=== PATIENT | male | born 1960 | race Caucasian/White ===

== ENCOUNTER 2020-04-07 10:50 | Observation (INO) | payer BC, OTHER ==
[~2020-04-07] VITALS: Ht 182.9 cm; Wt 94.3 kg
[2020-04-07 11:16] LABS: BASOPHILS % (AUTO) 0.8 % (0.0-5.0); EOSINOPHILS % (AUTO) 0.1 % (0.0-8.0); HEMATOCRIT 47.4 % (42-54); LYMPHOCYTES % (AUTO) 29.3 % (21.0-51.0); MEAN CORPUSCULAR HEMOGLOBIN 32.1 pg (27.0-33.0); MEAN CORPUSCULAR VOLUME 91.7 fL (79-99); MONOCYTES % (AUTO) 4.5 % (3.0-13.0); NEUTROPHILS % (AUTO) 65.2 % (40.0-77.0); PLATELET COUNT (AUTO) 355 K/uL (130-400); RED BLOOD CELL COUNT(AUTO) 5.17 MIL/uL (4.50-6.20); RED CELL DISTRIBUTION WIDTH 12.6 % (11.0-15.5); WHITE BLOOD COUNT (AUTO) 8.4 K/uL (4.8-10.8)
[2020-04-07 11:30] LABS: TOTAL PROTEIN, SERUM 7.9 g/dL (6.0-8.3)
[2020-04-07 11:54] LABS: INR 1.03 (0.85-1.15)
[2020-04-07 11:55] LABS: PARTIAL THROMBOPLASTIN TIME 27.9 SEC (26.3-35.5)
[2020-04-07] MEDS ORDERED: LABETALOL 20 MG/4 ML DISP.SYRIN IV ONE ×2 (12:27→23:04)
[2020-04-07] MEDS ORDERED: KETOROLAC TROMETHAMINE 30MG/ML ONE (12:31)
[2020-04-07] MEDS ORDERED: TETRACAINE HCL 0.5% 4 ML OPHTH SOLN ONE (12:31)
[2020-04-07] MEDS ORDERED: FLUORESCEIN SODIUM 1 STRIP STRIP ONE (12:31)
[2020-04-07] MEDS ORDERED: SODIUM CHLORIDE 0.9% 1000ML 1,000 ML IV ONE (12:32)
[2020-04-07 12:38] LABS: AMPHET/METH SCREEN,URINE NEGATIVE (NEGATIVE); BARBITURATE SCREEN, URINE NEGATIVE (NEGATIVE); BENZODIAZEPINES SCREEN,URINE NEGATIVE (NEGATIVE); CANNABINOID SCREEN,URINE NEGATIVE (NEGATIVE); COCAINE SCREEN,URINE NEGATIVE (NEGATIVE); OPIATE SCREEN,URINE NEGATIVE (NEGATIVE); PHENCYCLIDINE SCREEN,URINE NEGATIVE (NEGATIVE)
[2020-04-07 13:23] LABS: APPEARANCE,URINE Cloudy (CLEAR); BILIRUBIN,URINE Negative (NEGATIVE); COLOR,URINE Yellow (YELLOW); GLUCOSE, URINE (UA) Negative (NEGATIVE); KETONES,URINE 15 mg/dL (NEGATIVE); LEUKOCYTE ESTERASE ,URINE Trace (NEGATIVE); NITRATE,URINE Negative (NEGATIVE); OCCULT BLOOD,URINE Negative (NEGATIVE); PROTEIN,URINE Trace mg/dL (NEGATIVE)
[2020-04-07 14:10] LABS: AMORPHOUS SEDIMENT,UR Few /LPF (None Seen); BACTERIA,URINE Few /HPF (None Seen); RBC,URINE 0-1 /HPF (0-1); SQUAMOUS EPITHELIAL CELL,UR Rare /HPF (0-2); WBC,URINE 0-1 /HPF (0-1)
[2020-04-07] MEDS ORDERED: HYDRALAZINE HCL 25 MG TABLET ONE (14:10)
[2020-04-07] MEDS ORDERED: IOHEXOL 350 MG/ML 100ML INFUS..BTL IV ONE (16:13)
[2020-04-07] MEDS ORDERED: MORPHINE SULFATE 4 MG/1ML SYG ONE (16:51)
[2020-04-07] MEDS ORDERED: ONDANSETRON HCL 4 MG/2 ML VIAL ONE (16:51)
[2020-04-07] MEDS ORDERED: GUAIFENESIN-DM 200/20 MG 10 ML PO PRN (20:00)
[2020-04-07] MEDS ORDERED: BUTALB/ACETAMINOPHEN/CAFFEINE 1 EACH TABLET PO PRN (20:00)
[2020-04-07] MEDS ORDERED: ONDANSETRON HCL 4 MG/2 ML VIAL IV PRN (20:00)
[2020-04-07] MEDS ORDERED: LACTULOSE 20 GM/30 ML UDCUP PO PRN (20:00)
[2020-04-07] MEDS ORDERED: NITROGLYCERIN 0.4 MG SL TAB SL PRN (20:00)
[2020-04-07] MEDS: LACTATED RINGERS 1000ML 1,000 ML IV SCH (20:00)
[2020-04-07] MEDS: LORATADINE 10 MG TABLET PO SCH (20:00)
[2020-04-07] MEDS ORDERED: MAG HYDROX/AL HYDROX/SIMETH ES 30 ML SUSP UDCUP PO PRN (20:00)
[2020-04-07] MEDS ORDERED: CEFTRIAXONE SODIUM 1 GM IV SCH (20:00)
[2020-04-07] MEDS ORDERED: LABETALOL 20 MG/4 ML DISP.SYRIN IV PRN (20:00)
[2020-04-07] MEDS ORDERED: ACETAMINOPHEN 325 MG TAB PO PRN ×2 (20:00)
[2020-04-07] MEDS ORDERED: DIPHENHYDRAMINE HCL 25 MG CAPSULE PO PRN (20:00)
[2020-04-07] MEDS ORDERED: DiphenhydrAMINE HCL 50 MG/ML VIAL IV PRN (20:00)
[2020-04-07 20:50] LABS: CRP QUANTITATIVE 5.8 mg/L (0.00-9.0); THYROID STIMULATING HORMONE 0.85 uIU/mL (0.36-3.74)
[2020-04-07] MEDS: LOSARTAN 50 MG TABLET PO SCH (21:00)
[2020-04-07] MEDS ORDERED: FLUTICASONE PROPIONATE 50MCG/SPRAY 16 GM BOTTLE EN SCH (21:00)
[2020-04-07] MEDS ORDERED: TAMSULOSIN HCL 0.4 MG CAP.ER.24H PO SCH (21:15)
[2020-04-07] MEDS ORDERED: TAMSULOSIN HCL 0.4 MG CAP.ER.24H ONE (23:03)
[2020-04-07] MEDS ORDERED: CEFTRIAXONE SODIUM 1 GM ONE (23:04)
[2020-04-07] MEDS ORDERED: LORATADINE 10 MG TABLET ONE (23:04)
[2020-04-07] MEDS ORDERED: LOSARTAN 50 MG TABLET ONE (23:05)
[2020-04-07 23:30] VITALS: BP 172/112
[2020-04-08 03:51] VITALS: BP 133/99
[2020-04-08 03:57] LABS: BASOPHILS % (AUTO) 0.5 % (0.0-5.0); EOSINOPHILS % (AUTO) 0.6 % (0.0-8.0); HEMATOCRIT 47.1 % (42-54); LYMPHOCYTES % (AUTO) 29.6 % (21.0-51.0); MEAN CORPUSCULAR HEMOGLOBIN 31.6 pg (27.0-33.0); MEAN CORPUSCULAR HGB CONC 34.4 g/dL (32.0-36.0); MONOCYTES % (AUTO) 6.3 % (3.0-13.0); NEUTROPHILS % (AUTO) 62.7 % (40.0-77.0); PLATELET COUNT (AUTO) 371 K/uL (130-400); RED BLOOD CELL COUNT(AUTO) 5.12 MIL/uL (4.50-6.20); RED CELL DISTRIBUTION WIDTH 12.5 % (11.0-15.5); WHITE BLOOD COUNT (AUTO) 10.2 K/uL (4.8-10.8)
[2020-04-08 04:15] LABS: ALBUMIN 3.7 g/dL (3.5-5.0); BILIRUBIN,TOTAL 0.7 mg/dL (0.2-1.0); CRP QUANTITATIVE 5.3 mg/L (0.00-9.0); TOTAL PROTEIN, SERUM 7.6 g/dL (6.0-8.3)
[2020-04-08 08:00] VITALS: BP 132/92
[2020-04-08] MEDS ORDERED: LOSA50TA2 PO ×2 (08:31→15:33)
[2020-04-08] MEDS ORDERED: ENOXAPARIN SODIUM 40 MG/0.4 ML SYRINGE SQ SCH (09:00)
[2020-04-08] MEDS ORDERED: ASCORBIC ACID 500 MG TAB PO SCH (09:00)
[2020-04-08] MEDS ORDERED: FLUTICASONE PROPIONATE 50MCG/SPRAY 16 GM BOTTLE EN SCH (09:00)
[2020-04-08] MEDS: LORATADINE 10 MG TABLET PO SCH (09:07)
[2020-04-08] MEDS: LOSARTAN 50 MG TABLET PO SCH (09:08)
[2020-04-08 11:49] VITALS: BP 134/88
[2020-04-08] MEDS: LACTATED RINGERS 1000ML 1,000 ML IV SCH (12:07)
[2020-04-08 16:00] VITALS: BP 125/90
[2020-04-08] MEDS ORDERED: TAMSULOSIN HCL 0.4 MG CAP.ER.24H PO SCH (21:00)
== END 2020-04-08 17:30 | disposition home or self-care (01) ==
LOC: EDH 10:50 → EDHIP 19:50 → INTOOBSV 19:50 → 3AH 21:42
PROVIDERS: ADMIT Family Medicine; ATTEND Family Medicine
DX: R51.9 Headache, unspecified (principal); Z20.822 Contact with and (suspected) exposure to COVID-19; I10 Essential (primary) hypertension; R39.11 Hesitancy of micturition; Z79.899 Other long term (current) drug therapy
CPT/HCPCS: 36415 ×2; 70450; 70496; 70498; 70551 ×2; 71045; 80050; 80053; 80305; 81001; 82550; 84145; 84484; 85025; 85378 ×2; 85610; 85651; 85730; 86140 ×2; 87426; 93005; 96360; 96361; 96372; 99285; G0378 ×21; J0696; J1650; J1885; J2270; J2405; J7030; J7120 ×2; Q9967; U0003; 84443

== ENCOUNTER → 2024-02-07 | Outpatient (CLI) | payer MEDICARE, OTHER ==
[~2024-02-07] MED LIST: LOSA-418 PO
== END | disposition home or self-care (01) ==
LOC: LAB 11:05
PROVIDERS: ATTEND Orthopaedic Surgery
DX: M17.11 Unilateral primary osteoarthritis, right knee (principal)
CPT/HCPCS: 87641